=== PATIENT | female | born 1965 | race Caucasian/White ===

== ENCOUNTER 2017-12-11 09:07 | Emergency (ER) | payer MEDICAID | END 2017-12-11 09:43 | disposition home or self-care (01) | LOC: FTE 09:07 | DX: H60.91 Unspecified otitis externa, right ear (principal) | CPT/HCPCS: 99283 ==

== ENCOUNTER 2018-10-07 21:36 | Emergency (ER) | payer MEDICAID ==
[2018-10-07] MEDS: IBUPROFEN 600 MG TAB PO (22:14)
== END 2018-10-08 00:24 | disposition home or self-care (01) ==
LOC: FTE 10-08 00:24
DX: H92.03 Otalgia, bilateral (principal); J02.9 Acute pharyngitis, unspecified; Z85.850 Personal history of malignant neoplasm of thyroid
CPT/HCPCS: 71045; 99283-25